=== PATIENT | female | born 1945 | race Caucasian/White ===

== ENCOUNTER 2017-11-12 08:13 | Day surgery (SDC) | payer OTHER ==
[2017-11-12] MEDS ORDERED: CLINDAMYCIN 900 MG/DEXTROSE 50 ML IV ONE (08:21)
[2017-11-12] MEDS ORDERED: BUPIVACAINE/EPI 0.5% 30 ML SDV ONE ×2 (08:24→10:23)
[2017-11-12] MEDS ORDERED: LR 1,000 ML IV ONE (08:24)
[2017-11-12] MEDS ORDERED: MIDAZOLAM 2 MG/2 ML VIAL ONE (09:51)
[2017-11-12] MEDS ORDERED: fentaNYL 100 MCG/2 ML INJ ONE (09:51)
--- NOTE | 2017-11-12 10:23 | PDHPUP ---
History & Physical Update H&P update statement: This history and physical update is based on an assessment of the patient which was completed after admission or registration (within 24 hours), but prior to the surgery/procedure. H&P update: H&P reviewed & patient examined, no change in patient's condition since H&P completed
[2017-11-12] MEDS ORDERED: DEXAMETHASONE 4 MG/ML VIAL IVP PRN (11:10)
[2017-11-12] MEDS ORDERED: ONDANSETRON 4 MG/2 ML VIAL IVP PRN (11:10)
[2017-11-12] MEDS ORDERED: HYDROCODONE/APAP 5/325 TAB PO PRN (11:10)
[2017-11-12] MEDS ORDERED: LR 500 ML IV PRN (11:10)
[2017-11-12] MEDS ORDERED: ACETAMINOPHEN 500 MG TAB PO PRN (11:10)
[2017-11-12] MEDS ORDERED: ALBUTEROL 3 ML DEYVIAL IH PRN (11:10)
[2017-11-12] MEDS ORDERED: fentaNYL 100 MCG/2 ML INJ IVP PRN (11:10)
[2017-11-12] MEDS ORDERED: NALOXONE HCL 0.4 MG/ML INJ IVP PRN (11:10)
--- NOTE | 2017-11-12 11:10 | PDANEPAE ---
ANE Past Medical History - Cardiovascular History Hx Hypertension: No Hx Arrhythmias: No Hx Chest Pain: No Hx Coronary Artery / Peripheral Vascular Disease: No Hx CHF / Valvular Disease: No Hx Palpitations: No Cardiovascular History Comment: white coat syndrome - Pulmonary History Hx COPD: No Hx Asthma/Reactive Airway Disease: No Hx Recent Upper Respiratory Infection: No Hx Oxygen in Use at Home: No Hx Sleep Apnea: No Sleep Apnea Screening Result - Last Documented: Negative - Neurologic History Hx Cerebrovascular Accident: No Hx Seizures: No Hx Dementia: No - Endocrine History Hx Diabetes: No - Renal History Hx Renal Disorders: No - Liver History Hx Hepatic Disorders: No - Neurological & Psychiatric Hx Hx Neurological and Psychiatric Disorders: No - Cancer History Hx Cancer: No - Congenital Disorder History Hx Congenital Disorders: No - GI History Hx Gastrointestinal Disorders: No - Other Health History Other Health History: wear glasses. still has bruising to right shoulder- slowly fading - Chronic Pain History Chronic Pain: No - Surgical History Prior Surgeries: 09/21/17 right humerus ORIF with Funes. right SANDRA 2007. tonsillectomy at 6yo ANE Review of Systems Review of Systems: - Exercise capacity METS (RN): 4 METS ANE Patient History - Allergies Allergies/Adverse Reactions: amoxicillin [Amoxicillin] Allergy (Verified 11/08/17 12:01) Vomiting nickel Allergy (Verified 11/08/17 12:01) Opioids - Morphine Analogues Allergy (Verified 11/08/17 12:03) patient only wants tylenol, do not push opiods on her Penicillins Allergy (Verified 11/08/17 12:01) Vomiting - Home Medications Home Medications: Herbals/Supplements -Info Only 09/20/17 [Last Taken 11/11/17] Medical Marijuana 11/08/17 [Last Taken 11/11/17] - NPO status NPO Since - Liquids (Date): 11/12/17 NPO Since - Liquids (Time): 05:30 NPO Since - Solids (Date): 11/11/17 NPO Since - Solids (Time): 21:30 - Smoking Hx Smoking Status: Never smoked - Family Anes Hx Family Hx Anesthesia Complications: none ANE Labs/Vital Signs - Vital Signs Blood Pressure: 175/89 Heart Rate: 81 Respiratory Rate: 14 O2 Sat (%): 94 Height: 157.48 cm Weight: 54.431 kg ANE Physical Exam - Airway Neck exam: FROM Mallampati Score: Class 1 Mouth exam: normal dental/mouth exam - Pulmonary Pulmonary: no respiratory distress, no rales or rhonchi, clear to auscultation - Cardiovascular Cardiovascular: regular rate and rhythym, no murmur, rub, or gallop - ASA Status ASA Status: III ANE Anesthesia Plan Anesthesia Plan: GA w LMA
[2017-11-12] MEDS ORDERED: ONDANSETRON 4 MG/2 ML VIAL ONE (11:11)
--- NOTE | 2017-11-12 11:42 | POSTOPPROG ---
Post Op Note Date of Operation: 11/12/17 Surgeon: Satnino Funes Case Finishing Machine Adjuster: none Anesthesiologist: diana Anesthesia: GET(General Endotracheal) Pre-op Diagnosis: R shoulder retained hardware Post-op Diagnosis: same Indication: above Procedure: R shoulder hwr Inf/Abcess present in the surg proc area at time of surgery?: No EBL: Minimal
[2017-11-12] MEDS ORDERED: ACETAMINOPHEN 500 MG TAB ONE (12:08)
[2017-11-12 12:26] VITALS: BP 134/86
--- NOTE | 2017-11-12 14:55 | POSTANESTH ---
Post Anesthetic Evaluation Cardiovascular Status: Normal, Stable, Similar to Pre-Op Cond, Tx Over/Under Hydration Respiratory Status: Normal, Stable Level of Consciousness/Mental Status: Moderately Sleepy Pain Control: Adequate, Prn Tx Ordered Nausea/Vomiting Control: Adequate, Prn Tx Ordered Complications Possibly Related to Anesthesia: None Noted
--- NOTE | 2017-11-12 21:01 | GOP ---
DATE OF OPERATION: 11/12/2017 SURGEON: Santino Funes MD GRINDER LAP: None. ANESTHESIA: General with supplemental 0.5% plain Marcaine with epi in the incision. PREOPERATIVE DIAGNOSIS: Hardware complication with retained screw, right shoulder. POSTOPERATIVE DIAGNOSIS: Hardware complication with retained screw, right shoulder. PROCEDURE PERFORMED: Removal of hardware x2 screws, right shoulder FINDINGS: SPECIMENS: None. ESTIMATED BLOOD LOSS: 5 mL. INDICATIONS: This is a 72-year-old female, whom I had previously fixed a multipart proximal humerus fracture on. She did well. The fracture did subside somewhat and there was a screw that was promine nt on her most recent x-ray, likely 1 or 2 mm into the joint. There was also a 2nd screw was seen cl ose to the joint as well. I did tell her I would take a look at it as well intraoperatively. We dis cussed risks and benefits of removing the screws versus leaving them. She elected for removal. I fe lt her fracture had healed enough that it was stable and we could remove a couple of screws and her f racture stability would be intact. We discussed risks of pain, nerve injury, fracture collapse, need for more hardware removal, infection. She elected to proceed. Informed consent was obtained. All questions were answered. She was marked preoperatively. DESCRIPTION OF PROCEDURE: The patient was taken to the operative suite, sterilely prepped and draped in the usual fashion. Time out was performed, verifying site, side, location, and agreed on by memb ers of the operating team. She was positioned. I localized the portion of the incision for the screw. I made a small incision, dissected down to the plate. I identified the 1 screw fluoroscopically, put the screwdriver in this and removed this. I then fluoroscoped the arm. There was a 2nd screw that was right to the edge of the joint. It did not appear in the joint, but it was very close and if she had any more subsidence , this may be a problem. I then isolated this screw and removed it. The rest of her screws looked t o be well clear of the joint space. The fracture was intact and moved nicely as a unit. She was tho roughly irrigated. I did the distal scar revision as well. She had some scarring prominence. There was no infection in this area. I closed both these incisions with 2-0 Vicryl, 3-0 Monocryl, and Chapin mabond. She was placed in sterile dressing, taken to PACU in stable condition. COMPLICATIONS: None. DRAINS: None. CONDITION: Stable. /[id number]/MODL
== END 2017-11-12 12:42 | disposition home or self-care (01) ==
LOC: FSGY 08:13
PROVIDERS: ATTEND Orthopaedic Surgery
PROC: 0PPF04Z Removal of Internal Fixation Device from Right Humeral Shaft, Open Approach (ICD-10-PCS; principal; 2017-11-12 09:30)
DX: T84.120A Displacement of internal fixation device of right humerus, initial encounter (principal)
CPT/HCPCS: J2250; J2405; J3010